=== PATIENT | male | born 1975 | race Caucasian/White ===

== ENCOUNTER 2025-03-10 17:38 | Emergency (ER) | payer OTHER ==
[~2025-03-10] VITALS: Ht 182.9 cm; Wt 79.4 kg
[2025-03-10 19:51] VITALS: BP 132/95; TEMP 98.7; O2SAT 100
== END 2025-03-10 19:52 | disposition home or self-care (01) ==
LOC: ER 17:46
DX: M79.5 Residual foreign body in soft tissue (principal); F17.200 Nicotine dependence, unspecified, uncomplicated; Z88.0 Allergy status to penicillin; Z60.2 Problems related to living alone